=== PATIENT | male | born 1965 | race Caucasian/White ===

== ENCOUNTER 2020-03-10 12:51 | Outpatient (CLI) | payer MEDICAID, SELFPAY ==
--- NOTE | 2020-03-10 13:04 | US_ITS ---
WS: [id number] RENAL ULTRASOUND URINARY BLADDER ULTRASOUND HISTORY: HEMATURIA COMPARISON: None available. TECHNIQUE: 2-D and color Doppler imaging of the kidney submitted. Right kidney: 12.5 cm x 5.4 cm x 5.1 cm. Normal echogenicity with no hydronephrosis or mass. Left kidney: 12.2 cm x 4.9 cm x 5.1 cm. Normal echogenicity with no hydronephrosis or mass. Tiny exophytic cortical cyst from the superior po le with a maximum diameter 1.0 cm. Aorta: Normal. Urinary Bladder: Well-distended urinary bladder. There is a soft tissue mass with increased vasculari ty in the posterior RIGHT urinary bladder mass measures 2.9 x 1.3 cm. Slightly lobulated surface exte nds into the lumen. There is additional mild thickening along the RIGHT lateral bladder wall which ma y be due to underdistention. Additional neoplasm is not excluded. US/US renal BI with bladder IMPRESSION: 1. Normal renal ultrasound. 2. Posterior LEFT bladder mass measures 2.9 x 1.3 cm suspicious for transition al cell neoplasm until otherwise proven. Additional thickening of the RIGHT lat eral bladder wall. Indeterminate for neoplasm. Recommend cystoscopy and follow- up with urology.
== END 2020-03-10 12:52 | disposition home or self-care (01) ==
LOC: US 12:56
PROVIDERS: Visit Provider Family Medicine
DX: R31.9 Hematuria, unspecified (principal); N32.9 Bladder disorder, unspecified
CPT/HCPCS: 76770; 76857

== ENCOUNTER 2020-10-18 01:42 | Emergency (ER) | payer MEDICAID, SELFPAY ==
[2020-10-18 01:43] VITALS: BP 145/98; PULSE 83; RESP 17; TEMP 36.9; O2SAT 98; BMI 30.3
[2020-10-18 02:10] VITALS: BP 145/98; PULSE 73; RESP 17; O2SAT 98
--- NOTE | 2020-10-18 18:03 | W.ED.SKABFB ---
HPI - Skin/Abscess/Foreign Bdy General: Chief complaint: Skin/Abscess/Foreign Body Stated complaint: RING WORM Time Seen by Provider: 10/18/20 01:48 History of Present Illness: HPI narrative: Patient presents via ambulance with complaint about intestinal worms and ringworm. Patient has treated these with all kinds of hhhy-ndn-cldyfbc home remedies to his lower extremities thighs and arms. Denies any other problems. MD complaint: rash Onset (ago): month(s) Tetanus up to date: unsure Location: L foot and R foot Severity: mild Severity scale (1-10): 1 Associated symptoms: Reports no associated symptoms; Deny chills, fever(s), nausea or vomiting Review of Systems Narrative: Patient states that he has ringworm on his feet and his thighs and that he has some worms coming out wounds in his arms and worms in his stool Const: Denies: fever(s), chills or body aches Eyes: Denies: change in vision or blurry vision ENMT: Denies: throat pain or nasal congestion Card: Denies: chest pain or dyspnea on exertion Resp: Denies: dyspnea, productive cough or non-productive cough GI: Reports: other (Patient seen some white little warmers and is still has rectal itching at t); Denies: abdominal pain, nausea or vomiting : Denies: difficulty urinating Musc: Denies: extremity pain Skin/Breast: Denies: rash Neuro: Denies: headache(s) Psych: Denies: anxiety or depression Delvis/Lymph: Denies: easy bruising Physical Exam Const: COMMON NORMALS: no acute distress, average body habitus and patient oriented x3 GENERAL APPEARANCE: not well kempt HENMT: COMMON NORMALS: normocephalic HEAD & SCALP: normal to inspection and normocephalic FACE & SINUS: normal facial exam Eye: COMMON NORMALS: conjunctivae normal GENERAL EYE: appearance normal, both eyes and all related structures CONJUNCTIVA: Yes conjunctivae normal Neck/C-Spine: COMMON NORMALS: no JVD Chest: COMMONS NORMALS: normal inspection of the chest Resp: COMMON NORMALS: normal respiratory effort and clear to auscultation bilaterally AUSCULTATION: clear to auscultation bilaterally Cardio: COMMON NORMALS: no JVD, regular rate and regular rhythm RATE: regular rate RHYTHM: regular rhythm GI: COMMON NORMALS: Normal to inspection, nondistended, normoactive bowel sounds present Extremity: COMMON NORMALS: normal to inspection and full ROM Neuro: COMMON NORMALS: patient oriented x3 Psych: APPEARANCE: No well kempt Skin: OTHER: No obvious infection to the skin in his genital area thighs. His feet lower legs are red appear to be irritated. No obvious ringworm but does have some dry flaky skin around the toes consistent with tinea arms appear fine he might have picked some areas with his fingernails so he has some mechanical debridement going on abdomen is soft Course Vital Signs: Vital signs: Vital Signs Temperature 98.4 F 10/18/20 01:43 Pulse Rate 73 10/18/20 02:10 Respiratory Rate 17 10/18/20 02:10 Blood Pressure 145/98 10/18/20 02:10 Pulse Oximetry 98 10/18/20 02:10 MDM - Skin/Abscess/Foreign Bdy MDM Narrative: Medical decision making narrative: Patient strongly encouraged not to use [id number] home remedies to treat his tinea. Also encouraged him to find the source and stay away from that if at all possible. Also discussed appropriate utilization of emergency services for complaints of tinea. Patient get prescription filled at local pharmacy establish with a primary care provider. Discharge Plan Discharge Patient Disposition: Home Clinical Impression: Body tinea, Pinworm infection Condition: Stable Prescriptions: New clotrimazole 1 % cream 1 applic topical BID 28 Days Qty: 45 RF: 0 ivermectin 3 mg tablet See Rx Instructions .ROUTE .COMPLEX Qty: 2 RF: 0 Discharge Orders: Discharge ED (Routine); Ordered 10/18/20 Ordered By: Shade Conley Discharge Diet: Usual diet Discharge Activity: Resume usual activity Patient Instructions: Tinea Corporis (ED) Activity Restrictions/Additional Instructions: Follow-up with medical provider as directed. Take medications as prescribed. Return to the ER or your medical provider if condition worsens. Please read and understand discharge instructions. If any questions ask please. Apply gas or other home remedies to this tinea use prescription only. 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
== END 2020-10-18 02:00 | disposition home or self-care (01) ==
PROVIDERS: Emergency Provider Nurse Practitioner Family
DX: B35.8 Other dermatophytoses (principal); B80 Enterobiasis
CPT/HCPCS: 99282

== ENCOUNTER → 2022-01-31 14:29 | Outpatient (BNVA) | payer MEDICAID, SELFPAY | PROVIDERS: Visit Provider Nurse Practitioner Family | DX: R31.9 Hematuria, unspecified (principal); K62.5 Hemorrhage of anus and rectum; Z87.19 Personal history of other diseases of the digestive system | CPT/HCPCS: 80053; 81000; 85025 ==

== ENCOUNTER → 2022-02-15 13:09 | Outpatient (BNVA) | payer MEDICAID, SELFPAY | PROVIDERS: Visit Provider Family Medicine | DX: R31.9 Hematuria, unspecified (principal); N32.89 Other specified disorders of bladder | CPT/HCPCS: 81003 ==

== ENCOUNTER → 2022-05-10 13:30 | Outpatient (BNVA) | payer MEDICAID, SELFPAY | PROVIDERS: Visit Provider Nurse Practitioner Family | DX: M25.551 Pain in right hip (principal); M25.511 Pain in right shoulder; Z96.641 Presence of right artificial hip joint | CPT/HCPCS: 73030; 73502 ==

== ENCOUNTER → 2022-06-04 17:36 | Outpatient (BNVA) | payer MEDICAID, SELFPAY | PROVIDERS: Visit Provider Nurse Practitioner Family | DX: I10 Essential (primary) hypertension (principal) | CPT/HCPCS: 80053; 80061 ==

== ENCOUNTER → 2022-08-20 09:41 | Outpatient (BNVA) | payer MEDICAID, SELFPAY | PROVIDERS: Visit Provider Urology | DX: D44.11 Neoplasm of uncertain behavior of right adrenal gland (principal) | CPT/HCPCS: 82533; 83835 ==

== ENCOUNTER → 2022-08-21 08:18 | Outpatient (BNVA) | payer MEDICAID, SELFPAY | PROVIDERS: Visit Provider Urology | DX: D44.11 Neoplasm of uncertain behavior of right adrenal gland (principal) | CPT/HCPCS: 82533 ==

== ENCOUNTER 2022-12-17 12:24 | Emergency (ER) | payer MEDICAID, SELFPAY ==
[2022-12-17 12:34] VITALS: BP 116/77; PULSE 76; RESP 16; TEMP 36.6; O2SAT 96; BMI 38.2
--- NOTE | 2022-12-17 12:39 | ECG_ITS ---
[facility] Test Date: 2022-12-17 Pat Name: Merrill Loza Department: Room: Gender: Male Procurement Specialist: : [id number] Requested By: Maris Ohara Order Number: [id number] Davison MD: Harvey Momin M.D. Measurements Intervals [place] Rate: 67 P: 31 VA: 163 QRS: 28 QRSD: 94 T: 15 QT: 383 QTc: 406 Interpretive Statements SINUS RHYTHM No previous ECG available for comparison Electronically Signed On 12-19-2022 9:59:01 CDT by Harvey Momin M.D. [email or web address]
--- NOTE | 2022-12-17 12:39 | XR_ITS ---
WS: [id number] Exam: XR chest 1V portable [id number] Date/Time of Exam: 12/17/2022 12:43 PM Reason For Exam: cp No priors. The lungs are hyperinflated and clear. Emphysematous changes seen in the right lung base. Normal card iomediastinal silhouette. Bony structures are intact. XR/XR chest 1V portable [id number] IMPRESSION: 1. No acute cardiopulmonary finding. 2. Pulmonary hyperinflation with emphysematous bleb formation in the right base .
--- NOTE | 2022-12-17 12:47 | W.ED.CHESTPA ---
HPI - Chest Pain General: Chief Complaint: Chest Pain Stated Complaint: Chest Pain off and on, hips and abd pain Time Seen by Provider: 12/17/22 12:38 Source: patient Mode of arrival: ambulatory Limitations: no limitations History of Present Illness: 57-year-old male states he has been having chest pain along with some hip pain off and on since April. He states he does have bladder cancer he supposed to start chemo in 1 to 2 weeks. He states that his PCP moved and he is almost out of his tramadol that the only thing that helps his pain. States the pain is currently in his right shoulder has been going on since April. Denies any shortness of breath denies any fever. Associated symptoms: Deny abdominal pain, dyspnea, fever(s), nausea or vomiting Review of Systems Const: Denies: fever(s), chills, body aches or change in appetite ENMT: Denies: throat pain or dental pain Card: Reports: chest pain Resp: Denies: dyspnea GI: Denies: abdominal pain, nausea, vomiting or diarrhea : Denies: dysuria Musc: Reports: extremity pain; Denies: neck pain or back pain Skin/Breast: Denies: rash Neuro: Denies: headache(s) PFSH ED PFSH: Medical History (Updated 12/17/22 @ 13:28 by Maris Ohara MD) Psychiatric care Social History (Updated 07/24/22 @ 13:36 by Magui Courtney LPN) Smoking and tobacco status: former smoker Quit status (tobacco): has quit using tobacco Year quit tobacco: 2021 Alcohol intake: never Physical Exam Const: COMMON NORMALS: no acute distress, patient oriented x3 and healthy appearing HENMT: COMMON NORMALS: normocephalic and atraumatic HEAD & SCALP: normocephalic and atraumatic Eye: COMMON NORMALS: conjunctivae normal CONJUNCTIVA: Yes conjunctivae normal Neck/C-Spine: COMMON NORMALS: full ROM and supple Chest: COMMONS NORMALS: normal inspection of the chest and normal palpation of entire chest wall Resp: COMMON NORMALS: normal respiratory effort, No retractions, No use of accessory muscles and clear to auscultation bilaterally AUSCULTATION: clear to auscultation bilaterally Cardio: COMMON NORMALS: regular rate, regular rhythm and No murmurs present (Cardio) RATE: regular rate RHYTHM: regular rhythm GI: COMMON NORMALS: Normal to inspection, nondistended, normoactive bowel sounds present, Soft to palpation, non-tender and no masses PALPATION: Yes Soft to palpation Extremity: COMMON NORMALS: normal to inspection and full ROM Neuro: COMMON NORMALS: patient oriented x3, moves all extremities and no focal motor deficits Psych: COMMON NORMALS: mental status grossly normal, Normal thought process present and cooperative THOUGHT PROCESS: Normal thought process present Skin: COMMON NORMALS: no rashes or lesions noted and no wounds GENERAL SKIN EXAM: no rashes or lesions noted Course Vital Signs: Vital signs: Vital Signs Temperature 97.9 F 12/17/22 12:34 Pulse Rate 67 12/17/22 13:53 Respiratory Rate 17 12/17/22 13:53 Blood Pressure 121/71 12/17/22 13:30 Pulse Oximetry 95 12/17/22 13:53 Oxygen Delivery Me thod Room Air 12/17/22 13:30 MDM - Chest Pain Medical Decision Making Patient presents here with chest pain its been going on for months he has been out of his tramadol as well he does state his PCP had moved away and he has a new 1 but has not had a license in the status is not able to write him for it. His troponin here is normal he is no signs of acute coronary syndrome we will write him 12 tramadol he is follow-up his PCP and return if worsening Medical Records I reviewed the patient's medical records. Lab Data I reviewed the patient's lab results. 12/17/22 12:49 12/17/22 12:49 Radiology Impressions Chest X-Ray 12/17/22 12:39 IMPRESSION: 1. No acute cardiopulmonary finding. 2. Pulmonary hyperinflation with emphysematous bleb formation in the right base. Laboratory Results WBC 6.1 10^3/uL (4.0-10.0) 12/17/22 12:49 RBC 4.41 10^6/uL (4.1-5.3) 12/17/22 12:49 Hgb 13.5 g/dL (11.7-16.6) 12/17/22 12:49 Hct 39.7 % (42.0-52.0) L 12/17/22 12:49 MCV 90.0 fl (80-94) 12/17/22 12:49 MCH 30.6 pg (28.0-34.0) 12/17/22 12:49 MCHC 34.0 g/dL (30.0-36.0) 12/17/22 12:49 RDW 12.1 % (12.1-15.1) 12/17/22 12:49 Plt Count 166 10^3/cmm (130-400) 12/17/22 12:49 MPV 9.2 fL (7.4-10.4) 12/17/22 12:49 Neut % (Auto) 61.4 % 12/17/22 12:49 Lymph % (Auto) 25.5 % 12/17/22 12:49 [place] % (Auto) 9.7 % 12/17/22 12:49 Eos % (Auto) 2.5 % 12/17/22 12:49 Baso % (Auto) 0.7 % 12/17/22 12:49 Neut # (Auto) 3.76 10^3/uL (1.8-7.7) 12/17/22 12:49 Lymph # (Auto) 1.6 10^3/uL (0.8-4.8) 12/17/22 12:49 [place] # (Auto) 0.6 10^3/uL (0.2-0.9) 12/17/22 12:49 Eos # (Auto) 0.2 10^3/uL (0.0-0.8) 12/17/22 12:49 Baso # (Auto) 0.0 10^3/uL (0.0-0.1) 12/17/22 12:49 Nucleated RBC % (auto) 0 % 12/17/22 12:49 Nucleated RBCs # 0.0 /100WBC 12/17/22 12:49 Sodium 142 mmol/L (136-145) 12/17/22 12:49 Potassium 4.8 mmol/L (3.5-5.1) 12/17/22 12:49 Chloride 104 mmol/L (98-107) 12/17/22 12:49 Carbon Dioxide 27 mmol/L (22-29) 12/17/22 12:49 Anion Gap 15.8 (5-19) 12/17/22 12:49 BUN 18 mg/dL (6-20) 12/17/22 12:49 Creatinine 0.8 mg/dL (0.7-1.2) 12/17/22 12:49 GFR Calculation 99.6 mL/min (90-130) 12/17/22 12:49 Glucose 94 mg/dL (65-115) 12/17/22 12:49 Calculated Osmolality 296 mOsm/kg (285-295) H 12/17/22 12:49 Calcium 9.6 mg/dL (8.5-10.5) 12/17/22 12:49 Total Bilirubin 0.4 mg/dL (0.15-1.2) 12/17/22 12:49 AST 30 U/L (0-40) 12/17/22 12:49 ALT 39 U/L (0-41) 12/17/22 12:49 Alkaline Phosphatase 96 U/L (40-130) 12/17/22 12:49 Troponin T Baseline 11 ng/L (0-15) 12/17/22 12:49 Total Protein 7.2 g/dL (6.6-8.7) 12/17/22 12:49 Albumin 4.9 g/dL (3.5-5.2) 12/17/22 12:49 Globulin 2.3 g/dL (1.3-4.6) 12/17/22 12:49 Lipase 99 U/L (13-60) H 12/17/22 12:49 EKG Data EKG 1: I personally reviewed and interpreted this EKG as follows: EKG interpretation date: 12/17/22 EKG interpretation time: 12:32 Interpretation: nsr hr [address] or t wave abnormalities qrs 91 qtc 386 Discharge Plan Discharge Patient Disposition: Home Clinical Impression: Chest pain Condition: Stable Prescriptions: New tramadol 50 mg tablet 50 mg PO Q8H PRN (Reason: pain) Qty: 12 0RF No Action ibuprofen [Advil] 200 mg tablet 400 mg PO Q8H PRN (Reason: pain) acetaminophen [Tylenol Extra Strength] 500 mg tablet 1,000 mg PO Q6H PRN (Reason: pain) Midol Complete 500-60-15 mg tablet 2 tab PO Q6H PRN atorvastatin 40 mg tablet 40 mg PO DAILY Qty: 90 1RF Discharge Orders: Discharge ED (Routine); Ordered 12/17/22 Ordered By: Maris Ohara Discharge Diet: Advance as tolerated Discharge Activity: Resume usual activity Patient Instructions: Chest Pain (ED) Coding Level of Care Code ED 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
[2022-12-17 12:59] VITALS: BP 140/96; PULSE 70; RESP 11; O2SAT 98
[2022-12-17 13:01] LABS: Basophils % 0.7 %; Eosinophils # 0.2 10^3/uL (0.0-0.8); Eosinophils % 2.5 %; Hematocrit 39.7 % (42.0-52.0); Hemoglobin 13.5 g/dL (11.7-16.6); Lymphocytes # 1.6 10^3/uL (0.8-4.8); Lymphocytes % 25.5 %; Mean Corpuscular Hemoglobin 30.6 pg (28.0-34.0); Mean Platelet Volume 9.2 fL (7.4-10.4); Monocytes # 0.6 10^3/uL (0.2-0.9); Monocytes % 9.7 %; Neutrophils # 3.76 10^3/uL (1.8-7.7); Neutrophils % 61.4 %; Nucleated Red Blood Cells % 0 %; Platelet Count 166 10^3/cmm (130-400); Red Blood Count 4.41 10^6/uL (4.1-5.3); Red Cell Distribution Width 12.1 % (12.1-15.1); White Blood Count 6.1 10^3/uL (4.0-10.0)
[2022-12-17 13:19] LABS: Alanine Aminotransferase 39 U/L (0-41); Albumin Level 4.9 g/dL (3.5-5.2); Alkaline Phosphatase 96 U/L (40-130); Anion Gap 15.8 (5-19); Aspartate Amino Transferase 30 U/L (0-40); Blood Urea Nitrogen 18 mg/dL (6-20); Calcium 9.6 mg/dL (8.5-10.5); Carbon Dioxide 27 mmol/L (22-29); Chloride 104 mmol/L (98-107); Globulin 2.3 g/dL (1.3-4.6); Glomerular Filtration Rate 99.6 mL/min (90-130); Glucose 94 mg/dL (65-115); Lipase 99 U/L (13-60); Osmolality Calculated 296 mOsm/kg (285-295); Potassium 4.8 mmol/L (3.5-5.1); Sodium 142 mmol/L (136-145); Total Bilirubin 0.4 mg/dL (0.15-1.2); Total Protein 7.2 g/dL (6.6-8.7)
[2022-12-17 13:21] LABS: Troponin(5th) Baseline 11 ng/L (0-15)
[2022-12-17 13:30] VITALS: BP 121/71; PULSE 58; RESP 12; O2SAT 96
[2022-12-17 13:37] VITALS: RESP 18; O2SAT 97
[2022-12-17] MEDS: morphine 4 mg/mL SDV 1 mL IVP (13:37)
[2022-12-17] MEDS: ondansetron 2 mg/ML SDV 2 mL 4 MG IVP (13:37)
[2022-12-17 13:53] VITALS: PULSE 67; RESP 17; O2SAT 95
== END 2022-12-17 13:56 | disposition home or self-care (01) ==
PROVIDERS: Emergency Provider Emergency Medicine
DX: R07.9 Chest pain, unspecified (principal); Z87.891 Personal history of nicotine dependence
CPT/HCPCS: 71045; 80053; 83690; 84484; 85025; 93005; 96374; 96375; 99285; J2270; J2405